=== PATIENT | male | born 2000 | race Caucasian/White ===

== ENCOUNTER 2020-12-24 19:31 | Emergency (ER) | payer OTHER, SELFPAY ==
[2020-12-24 20:29] VITALS: BP 138/74; PULSE 91; RESP 20; TEMP 36.8; O2SAT 99; BMI 48.9
--- NOTE | 2020-12-24 22:14 | ED_ITS ---
HPI - Skin/Abscess/Foreign Bdy General Chief complaint: Skin/Abscess/Foreign Body Stated complaint: leg swelling Time Seen by Provider: 12/24/20 22:13 Source: patient and family (Mother) Mode of arrival: ambulatory History of Present Illness HPI narrative: 20-year-old male without significant past medical history presents with 3 days of noted redness without itching at the medial aspect of his left lower leg without fever, chills, and unable to recall any injury and did not start with suspected insect bite. Patient denies any increase in redness since applying grewal yesterday. Related Data Previous Rx's Medication Instructions Recorded cephalexin 500 mg PO QID 10 Days #40 cap 12/24/20 Allergies Allergy/AdvReac Type Severity Reaction Status Date / Time No Known Allergies Allergy Verified 12/24/20 20:29 Review of Systems Review of Systems: Pertinent positives and negatives as stated in HPI 10 point review of systems is otherwise negative. PMFSH Past Medical History Source: nursing notes reviewed Medical History Asthma Social History Social History Advance Directives: No Advance Directives Information Provided: Yes Physical Exam Vital Signs: Vital Signs: Last Vital Signs Temp 98.3 F 12/24/20 20:29 Pulse 91 12/24/20 20:29 Resp 20 12/24/20 20:29 BP 138/74 12/24/20 20:29 Pulse Ox 99 12/24/20 20:29 Body Mass Index 48.9 VITAL SIGNS: Reviewed. GENERAL: Well developed, well nourished, in no acute distress. HEAD: Normocephalic/atraumatic EYES: PERRLA, EOMI OROPHARYNX: no oral lesions noted, posterior pharynx clear LUNGS: Normal breath sounds. No adventitious sounds or accessory muscle use. SpO2<99> CARDIOVASCULAR: Regular rate and rhythm without noted murmurs ABDOMEN: Soft, non-tender, non-distended with bowel sounds. LEFT LOWER EXTREMITY: 6 CM, circular, mild erythema without warmth with overly ing purplish discoloration SKIN: Inspection of the skin reveals +rash NEUROLOGIC: Alert and oriented x 4. Course Course Course Narrative: 20-year-old male with history and clinical presentation suggestive of possible erysipelas, low clinical suspicion for DVT, no evidence to suggest poison luis daniel. Patient reassured and discharged home in stable condition with initial antibiotics given here in the ER and instructed to follow-up with PCP. Discharge Plan Discharge Clinical Impression: Erysipelas Patient Disposition: Home, Self-Care Instructions: Acute Rash (ED) Additional Instructions: 1. Please follow-up with your primary care provider in the next 1-2 days for re- evaluation and further outpatient management. Return to the ER for acute worsening of symptoms. Prescriptions: New cephalexin 500 mg capsule 500 mg PO QID 10 Days Qty: 40 RF: 0 Referrals: John Burgess MD [Primary Care Provider] - 2 days (Re-evaluation for suspected erysipelas to left lower extremity, started on cephalexin 500 mg q.6.)
[2020-12-24] MEDS: cephALEXin 500 MG CAPSULE PO (22:17)
== END 2020-12-24 22:41 | disposition home or self-care (01) ==
PROVIDERS: Emergency Provider Student in an Organized Health Care Education/Training Program; PCP Pediatrics
DX: A46 Erysipelas (principal)
CPT/HCPCS: 99283

== ENCOUNTER 2021-05-15 22:17 | Emergency (ER) | payer OTHER, SELFPAY ==
--- NOTE | ~2021-05-15 | XR_ITS ---
EXAMINATION: XR CHEST CLINICAL INFORMATION: Covid positive. Shortness of breath. COMPARISON: None TECHNIQUE: Frontal view of the chest was obtained. FINDINGS: No significant abnormality is noted involving the heart, lungs, mediastinum, bony thorax or soft tissues. XR/XR chest 1V IMPRESSION: Unremarkable examination.
[2021-05-15 22:25] VITALS: BP 133/85; PULSE 100; RESP 18; TEMP 37.2; O2SAT 96; BMI 48.8
--- NOTE | 2021-05-15 23:07 | ED.URI ---
HPI - URI/Sore Throat General Chief Complaint: Upper Respiratory Symptoms Stated Complaint: COVID + Source: patient Mode of arrival: ambulatory Limitations: no limitations History of Present Illness HPI Narrative: 20-year-old male presents with positive COVID test 6 days ago presents with shortness of breath and states that hurts to breathe in. MD elicited complaint: other (COVID positive) Onset (ago): day(s) (6) Consistency: intermittent Severity: mild Pain scale (0-10): 3 Description of mucous: clear Able to tolerate fluids by mouth: Yes Exacerbating factors: deep breaths Relieving factors: nothing Associated symptoms: myalgias, nasal congestion, cough, chest pain and shortness of breath Treatments prior to arrival: none Related Data Previous Rx's Medication Instructions Recorded cephalexin 500 mg capsule 500 mg PO QID 10 Days #40 cap 12/24/20 Allergies Allergy/AdvReac Type Severity Reaction Status Date / Time No Known Allergies Allergy Verified 05/15/21 22:25 Review of Systems Review of Systems: Constitutional: positive Fever, positive Chills, positive fatigue, positive Malaise ENT/Mouth: positive sore throat, positive runny nose Eyes: No Discharge Cardiovascular: Positive Chest Pain, positive SOB Respiratory: Positive Cough, No Sputum, No Wheezing, No Smoke Exposure, No Dyspnea Gastrointestinal: No Nausea, No Vomiting, No Diarrhea Genitourinary: no irregular bleeding, No Dysuria, No Urinary Frequency, No Hematuria, No Urinary Incontinence, No Urgency, No Flank Pain, Musculoskeletal: positive Myalgia Skin: No rash Neuro: No Headache Yes all other systems are reviewed and are negative PMFSH Past Medical History Source: old records reviewed Medical History Anxiety Asthma Depression Surgical History H/O adenoidectomy History of tonsillectomy Hx of tympanostomy tubes Social History Social History Advance Directives: No Advance Directives Information Provided: Yes Physical Exam Vital Signs: Vital Signs: Last Vital Signs Temp 99.0 F 05/15/21 22:25 Pulse 100 05/15/21 22:25 Resp 18 05/15/21 22:25 BP 133/85 05/15/21 22:25 Pulse Ox 96 05/15/21 22:25 BMI result Body Mass Index 48.8 Appearance: Alert. Oriented X3. No acute distress. Eyes: Pupils equal, round and reactive to light. ENT: Pharynx normal. Moist mucous membranes. Neck: Normal inspection. Neck supple. No nuchal rigidity. No cervical lymphadenopathy noted. CVS: Normal heart rate and rhythm. Pulses normal. No chest wall tenderness to palpation. Respiratory: No respiratory distress. Lung sounds clear to auscultation all lobes. Abdomen: Soft and nontender. Morbidly obese. Skin: Skin warm and dry. Normal skin color. Normal skin turgor. Extremities: No lower extremity edema. Moves all extremities against resistance. Gait well-balanced well coordinated. Neuro: No motor deficit. No sensory deficit. Cranial nerves 2-12 intact. Course Course Course Narrative: 20-year-old male presents with persistent COVID-19 symptoms. Stated that he was tested positive approximately 6 days ago and that he continues with shortness of breath and a weird sensation when he takes deep breaths. States that it hurts but it is not really a pain sensation. Patient is afebrile, appears nontoxic, O2 sats 99% on room air. Even unlabored respirations. Will order x-rays. 12:10 a.m. chest x-ray negative for acute findings. Plan of care is for albuterol and discharge home with supportive measures. Will give monoclonal antibody referral as patient is morbidly obese. Patient verbalized understanding of and agrees to plan of care discharge home. MDM - URI/Sore Throat MDM Narrative Medical decision making narrative: Viral pneumonia, COVID pneumonia, bacterial pneumonia Differential Diagnosis Differential diagnosis: Likely upper respiratory infection and viral infection Medical Records Attestation: I reviewed the patient's medical records. Imaging Data Chest x-ray: Attestation: I personally reviewed and interpreted this imaging study as follows: Radiologist's impression: EXAMINATION: XR CHEST CLINICAL INFORMATION: Covid positive. Shortness of breath. COMPARISON: None TECHNIQUE: Frontal view of the chest was obtained. FINDINGS: No significant abnormality is noted involving the heart, lungs, mediastinum, bony thorax or soft tissues. XR/XR chest 1V IMPRESSION: Unremarkable examination. ? Discharge Plan Discharge Clinical Impression: COVID-19 Patient Disposition: Home, Self-Care Instructions: Covid-19 Viral Syndrome and Novel Coronavirus (ED) Hey/Ath Additional Instructions: You were evaluated for symptoms consistent with COVID-19. Your chest x-ray is negative for pneumonia or other acute findings. Please use albuterol inhaler as needed. Continue to use supportive measures Tylenol and Motrin as needed for pain management and fever control. Rest. Drink plenty of fluids. Maintain social isolation per State and Federal guidelines. I have referred you to monoclonal antibodies treatment. Thank you for choosing this emergency department for evaluation. Please follow-up with primary care physician as needed. Return to the emergency department for any new, concerning, or worsening symptoms. Prescriptions: No Action cephalexin 500 mg capsule 500 mg PO QID 10 Days Qty: 40 RF: 0
[2021-05-15] MEDS: Ibuprofen 600 MG TABLET PO (23:44)
[2021-05-16] MEDS: Albuterol Sulfate 90 MCG 8 GM INHALER 2 PUFF INHALE (00:16)
== END 2021-05-16 00:17 | disposition home or self-care (01) ==
PROVIDERS: Emergency Provider Student in an Organized Health Care Education/Training Program
DX: U07.1 COVID-19 (principal); J45.909 Unspecified asthma, uncomplicated
CPT/HCPCS: 71045; 99283; 99284